=== PATIENT | female | born 1975 | race American Indian/Alaskan Native ===

== ENCOUNTER 2016-09-05 14:11 | Emergency (ER) | payer MEDICAID ==
[2016-09-05 14:31] VITALS: TEMP 98; O2SAT 100
[2016-09-05 14:44] VITALS: BMI 41.9
--- NOTE | 2016-09-05 14:44 | ED PDOC ---
Arrival/HPI - General Chief Complaint: Palpitations Time Seen by Provider: 09/05/16 14:27 Historian: Patient - History of Present Illness Narrative History of Present Illness (Text): 09/05/16 14:41 A 40 year old female, whose past medical history includes hypertension, presents to the emergency department complaining of high blood pressure and palpitations since today. Patient reports she was seen by her PMD 4 days ago to refill her blood pressure medication. Patient was instructed to come into the emergency room that day due to an EKG read but patient was unable to. Patient denies any fever, nausea, vomiting, diarrhea, abdominal pain, chest pain, shortness of breath or any other complaints. PMD: Dr. Alysia Catalan Time/Duration: Other (Today) Symptom Course: Unchanged Quality: Other Context: Home Associated Symptoms (Text): 09/05/16 14:59 Patient reports a history of hypertension. She ran out of all of her antihypertensive medication. She was seen by her PMD 4 days ago to have her medications refilled and her blood pressure was elevated. She was directed by her PMD to go to the emergency department. She reports that because the snow she has not come to the department until today. She states that she had some palpitations previously. No chest pain. No dizziness. No nausea vomiting. No weakness. No numbness or tingling. No headache. No difficulty with ADLs. She is on metoprolol 100 and valsartin with hydrochlorothiazide. She gets a cough from lisinopril. She is morbidly obese. Past Medical History - Provider Review Nursing Documentation Reviewed: Yes - Cardiac Hx Hypertension: Yes - Psychiatric Hx Substance Use: No Family/Social History - Physician Review Nursing Documentation Reviewed: Yes Family/Social History: No Known Family HX Smoking Status: Current Some Days Smoker Hx Alcohol Use: Yes Frequency of alcohol use: Socially Hx Substance Use: No Allergies/Home Meds Allergies/Adverse Reactions: Allergies lisinopril Adverse Reaction (Verified 09/05/16 14:44) COUGH Review of Systems - Physician Review All systems were reviewed & negative as marked: Yes - Review of Systems Constitutional: absent: Fatigue, Fevers Respiratory: absent: SOB Cardiovascular: Palpitations. absent: Chest Pain, Syncope Gastrointestinal: absent: Abdominal Pain, Diarrhea, Nausea, Vomiting Neurological: absent: Headache, Dizziness, Focal Weakness, Gait Changes Physical Exam Vital Signs Reviewed: Yes Vital Signs Temp Pulse Resp BP Pulse Ox 09/05/16 16:11 65 18 145/89 100 09/05/16 14:29 98.0 F 68 20 147/95 H 100 Temperature: Afebrile Blood Pressure: Hypertensive Pulse: Regular Respiratory Rate: Normal Appearance: Positive for: Well-Appearing, Non-Toxic, Comfortable, Other (Obese female) Pain Distress: None Mental Status: Positive for: Alert and Oriented X 3 - Systems Exam Head: Present: Atraumatic, Normocephalic Pupils: Present: PERRL Extroacular Muscles: Present: EOMI Conjunctiva: Present: Normal Mouth: Present: Moist Mucous Membranes Neck: Present: Normal Range of Motion Respiratory/Chest: Present: Clear to Auscultation, Good Air Exchange. No: Respiratory Distress, Accessory Muscle Use Cardiovascular: Present: Regular Rate and Rhythm, Normal S1, S2. No: Murmurs Abdomen: Present: Normal Bowel Sounds. No: Tenderness, Distention, Peritoneal Signs Upper Extremity: Present: Normal Inspection. No: Cyanosis, Edema Lower Extremity: Present: Normal Inspection. No: Edema Neurological: Present: GCS=15, CN II-XII Intact, Speech Normal, Motor Func Grossly Intact, Normal Sensory Function, Normal Cerebellar Funct Skin: Present: Warm, Dry, Normal Color. No: Rashes Psychiatric: Present: Alert, Oriented x 3, Normal Insight, Normal Concentration Medical Decision Making ED Course and Treatment: 09/05/16 14:41 Impression: A 40 year old female with high blood pressure and palpitations Plan: -- EKG -- Labs -- Reassess and disposition Progress Notes: 09/05/16 15:05 EKG shows normal sinus rhythm rate approximately [address]-T changes and inverted T-wave which are similar to an EKG that the patient brought from her PMDs office dated 09/01/2016 09/05/16 16:42 Patient remains comfortable with mildly elevated blood pressure. Her workup is unrevealing. She will be discharged home to follow up with PMD and jail keeper. Suggest Holter monitor. Follow up in the ER as needed. She may need a change in her medication regimen or additional medication. This will be determined by her PMD. - Lab Interpretations Lab Results: 09/05/16 15:45 09/05/16 15:45 Lab Results 09/05/16 15:45: WBC 4.4 L, RBC 4.93, Hgb 15.2, Hct 44.7, MCV 90.7, MCH 30.8, MCHC 34.0, RDW 14.0, Plt Count 226, MPV 12.3 H, Gran % 48.5 L, Lymph % (Auto) 40.8 H, [place] % (Auto) 8.0 H, Eos % (Auto) 2.5, Baso % (Auto) 0.2, Gran # 2.13, Lymph # 1.8, [place] # 0.4, Eos # 0.1, Baso # 0.01, Sodium 139, Potassium 3.6, Chloride 101, Carbon Dioxide 27, Anion Gap 15, BUN 14, Creatinine 1.1, Est GFR ( Amer) > 60, Est GFR (Non-Af Amer) 54, Random Glucose 93, Calcium 10.0, Total Bilirubin 1.6 H, AST 34, ALT 20, Alkaline Phosphatase 39, Lactate Dehydrogenase 404, Total Creatine Kinase 462 H, CK-MB (CK-2) 1.4, CK-MB (CK-2) % Cancelled, Troponin I < 0.01, Total Protein 8.4 H, Albumin 4.2, Globulin 4.2, Albumin/Globulin Ratio 1.0 L I have reviewed the lab results: Yes - Scribe Statement The provider has reviewed the documentation as recorded by the Harmonyibharika Scanlon Provider Scribe Attestation: All medical record entries made by the Scribe were at my direction and personally dictated by me. I have reviewed the chart and agree that the record accurately reflects my personal performance of the history, physical exam, medical decision making, and the department course for this patient. I have also personally directed, reviewed, and agree with the discharge instructions and disposition. Disposition/Present on Arrival - Present on Arrival Any Indicators Present on Arrival: No History of DVT/PE: No History of Uncontrolled Diabetes: No Urinary Catheter: No History of Decub. Ulcer: No History Surgical Site Infection Following: None - Disposition Have Diagnosis and Disposition been Completed?: Yes Diagnosis: Hypertension, Palpitations, Obesity Disposition: HOME/ ROUTINE Disposition Time: 16:43 Patient Plan: Discharge Condition: GOOD Discharge Instructions (ExitCare): Hypertension (ED), Palpitations (ED), Holter Monitoring (ED) Additional Instructions: Must take medications as prescribed by PMD. Follow-up in the ER as needed. Referrals: Alysia Catalan MD [Primary Care Provider] - Follow up with primary Sharif Wilkes MD [Staff Provider] - Follow up with primary
[2016-09-05 15:58] LABS: ADD MANUAL DIFF? NO
[2016-09-05 16:08] LABS: BASO # 0.01 K/mm3 (0.0-2.0); BASO % 0.2 % (0.0-3.0); EOS # 0.1 (0.0-0.7); EOS % 2.5 % (1.5-5.0); GRAN # 2.13 (1.4-6.5); GRAN % 48.5 % (50.0-68.0); HEMATOCRIT 44.7 % (36.0-48.0); LYMPH # 1.8 (1.2-3.4); LYMPH % 40.8 % (22.0-35.0); MEAN CELL VOLUME 90.7 fL (80.0-105.0); MEAN CORPUSCULAR HEMOGLOBIN 30.8 pg (25.0-35.0); MEAN PLATELET VOLUME 12.3 fl (7.0-11.0); MONO # 0.4 (0.1-0.6); PLATELET COUNT 226 10^3/uL (120.0-450.0); WHITE BLOOD COUNT 4.4 10^3/ul (4.5-11.0)
[2016-09-05 16:12] LABS: ALKALINE PHOSPHATASE 39 U/L (38-133); ALT/SGPT 20 U/L (7-56); AST/SGOT 34 U/L (15-39); BILIRUBIN,TOTAL 1.6 mg/dL (0.2-1.3); BLOOD UREA NITROGEN 14 mg/dL (7-21); CARBON DIOXIDE 27 mmol/L (21-33); CHLORIDE 101 mmol/L (98-107); GFR AFRICAN-AMERICAN > 60; GLUCOSE,RANDOM 93 mg/dL (70-110); POTASSIUM 3.6 mmol/L (3.6-5.0); SODIUM 139 mmol/L (132-148); TOTAL PROTEIN 8.4 g/dL (5.8-8.3)
[2016-09-05 16:26] LABS: TROPONIN I < 0.01 ng/mL
[2016-09-05 16:39] VITALS: BP 145/89; PULSE 65; RESP 18
--- NOTE | 2016-09-06 09:57 | CARD ---
APPROVED REPORT EKG Measurement Heart [id number] <Conclusion> Normal sinus rhythm LVH STTW changes c/w ischemia and /or strain pattern
== END 2016-09-05 16:50 | disposition home or self-care (01) ==
LOC: ED 14:11
DX: I10 Essential (primary) hypertension (principal); R00.2 Palpitations; E66.01 Morbid (severe) obesity due to excess calories